=== PATIENT | male | born 1945 | race Caucasian/White ===

== ENCOUNTER → 2018-01-27 07:19 | Outpatient (CLI) | payer MEDICARE, SELFPAY ==
--- NOTE | 2018-01-27 08:00 | US_ITS ---
US aorta HISTORY: ITS.REASON: SCREENING FOR AAA FINDINGS: The upper abdominal aorta at the level is void is 1.8 x 1.5 cm. The aorta at the level the umbilicus measures 1.8 x 1.6 cm. Plaque is present within the aortic wall. Common iliacs are nondilated. IMPRESSION: No evidence of abdominal aortic aneurysm
== END ==
PROVIDERS: Family Provider Family Medicine; PCP Family Medicine; Visit Provider Internal Medicine Cardiovascular Disease
DX: Z13.6 Encounter for screening for cardiovascular disorders (principal)
CPT/HCPCS: 76770

== ENCOUNTER 2022-04-19 12:02 | Emergency (ER) | payer MEDICARE, SELFPAY ==
[2022-04-19 12:03] VITALS: BMI 22.6
--- NOTE | 2022-04-19 12:05 | ECG_ITS ---
APPROVED REPORT Exam: Resting ECG HR:49 bpm ECG Measurements Heart Rate 49 AXES NM 164 P 64 QRSd 102 QRS 65 QT 437 T -22 QTc 409 Conclusion SINUS BRADYCARDIA Late R wave progression NONSPECIFIC ST & T-WAVE ABNORMALITY ABNORMAL ECG UNCONFIRMED REPORT Electronically signed by : Fox John MD 04/20/2022 08:02:53
--- NOTE | 2022-04-19 12:14 | XR_ITS ---
PROCEDURE INFORMATION: Exam: XR Chest Exam date and time: 04/19/2022 12:28 PM Age: 76 years old Clinical indication: Other: Syncope; Additional info: Near syncope TECHNIQUE: Imaging protocol: Radiologic exam of the chest. Views: 1 view. COMPARISON: No relevant prior studies available. FINDINGS: Lungs: See Bones/joints finding. Pleural spaces: Unremarkable. No pleural effusion. No pneumothorax. Heart/Mediastinum: Unremarkable. No cardiomegaly. Bones/joints: Asymmetric increased density over the left upper lobe measuring approximately 2 cm is probably exuberant calcification at the left costochondral junction. There are no comparison studies. To exclude pulmonary mass, CT would be required. Osteophytosis and eburnation of the acromioclavicular and glenohumeral articulating surfaces. Prior median sternotomy wires. IMPRESSION: Asymmetric increased density over the left upper lobe measuring approximately 2 cm is probably exuberant calcification at the left costochondral junction. There are no comparison studies. To exclude pulmonary mass, CT would be required.
[2022-04-19 12:30] LABS: Basophils # 0.1 K/mm3 (0-0.2); Basophils % 1.3 % (0.1-2.0); Eosinophils # 0.8 K/mm3 (0.0-0.4); Eosinophils % 11.1 % (0.1-12.0); Hematocrit 44.4 % (42.0-52.0); Hemoglobin 15.5 g/dL (14.1-18.0); Lymphocytes # 2.6 K/mm3 (0.7-4.5); Lymphocytes % 37.2 % (10-50); Mean Corpuscular Hemoglobin 33.9 pg (27.0-31.2); Mean Platelet Volume 9.1 fl (7.4-10.4); Monocytes # 0.4 K/mm3 (0.1-1.0); Monocytes % 5.7 % (1.7-9.3); Neutrophils # 3.1 K/mm3 (1.8-7.8); Neutrophils % 44.6 % (37.0-80.0); Platelet Count 211 K/mm3 (142-424); Red Blood Count 4.58 M/mm3 (4.60-6.20)
--- NOTE | 2022-04-19 12:35 | HMH.EDGENADL ---
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 Recommend that you continue to drink water daily in order to not get dehydrated. They will also call you on Thursday to set you up with a Holter monitor. Please return to the ED with any new or worsening symptoms. Referrals: Fox Jewell MD [Primary Care Provider] - - Critical Care Critical Care Time: No Attestation: On 04/19/22, the high probability of a clinically significant, sudden or life threatening deterioration of the following system(s) required my full and direct attention, intervention and personal management. The time I documented below is in addition to time spent performing reported procedures but includes the following listed in this critical care notation. Medical Decision Making - Adama Inquiry Pt receiving controlled substance: No Adama was queried for this patient: No Vital Signs: 04/19/22 12:49 04/19/22 14:26 04/19/22 15:18 Temperature 98 F Temperature Source Oral Pulse Rate 53 L 60 61 Respiratory Rate 20 14 16 Blood Pressure 115/65 121/64 113/68 Blood Pressure Position Sitting 02 Sat by Pulse Oximetry 100 99 Oxygen Delivery Method Room Air 04/19/22 15:30 04/19/22 16:30 Temperature Temperature Source Pulse Rate 78 58 L Respiratory Rate Blood Pressure 123/45 L 112/74 Blood Pressure Position 02 Sat by Pulse Oximetry Oxygen Delivery Method - Lab Data Lab Results 04/19/22 12:10: WBC 7.0, RBC 4.58 L, Hgb 15.5, Hct 44.4, MCV 97.0 H, MCH 33.9 H, MCHC 35.0, RDW 13.0, Plt Count 211, MPV 9.1, Neut % (Auto) 44.6, Lymph % (Auto) 37.2, Josephine % (Auto) 5.7, Eos % (Auto) 11.1, Baso % (Auto) 1.3, Neut # (Auto) 3.1, Lymph # (Auto) 2.6, Josephine # (Auto) 0.4, Eos # (Auto) 0.8 H, Baso # (Auto) 0.1 04/19/22 12:10: Sodium 137, Potassium 4.9, Chloride 107, Carbon Dioxide 20 L, Anion Gap 14.9, BUN 29 H, Creatinine 1.90 H, Estimated Creat Clear 34, Estimated GFR 35 L, Est GFR ( Amer) 42 L, Glucose 126 H, Calcium 10.0, Total Bilirubin 0.6, AST 42, ALT 26, Alkaline Phosphatase 104, Troponin I < 0.01, Total Protein 8.1, Albumin 4.8, Globulin 3.3 H, Albumin/Globulin Ratio 1.5 04/19/22 12:10: NT-Pro-B Natriuret Pep 786 H 04/19/22 12:33: SARS-CoV-2 (PCR) Not detected, Influenza A Untype (PCR) Not detected, Influenza Type B (PCR) Not detected 04/19/22 15:48: Troponin I < 0.01 Result diagrams: 04/19/22 12:10 04/19/22 12:10 Orders (Tests/Meds): ED MEDICATIONS Discontinued Medications Generic Name Dose Route Start Last Admin Trade Name Joann PRN Reason Stop Dose Admin Sodium Chloride 500 mls @ 999 mls/hr 04/19/22 13:15 04/19/22 13:13 Sod Chlor 0.9% 1000ml Bag IV 04/19/22 13:45 999 mls/hr .Q31M DOUG Administration Iopamidol 70 ml 04/19/22 14:10 04/19/22 14:10 Iopamidol-370 (76%);100ml Bottle IV 04/19/22 14:11 70 ml ONCE ONE Administration Sodium Chloride 10 ml 04/19/22 14:10 04/19/22 14:11 Sodium Chloride 0.9% 10ml Syr (Rad Only) IV 04/19/22 14:11 10 ml ONCE ONE Administration Medical Decision Narrative: Patient is a 76-year-old male who presents with concern for syncope. Hemodynamically stable and nontoxic-appearing upon arrival. He is bradycardic on initial assessment but this is likely due to his metoprolol. His symptoms are most likely consistent with vasovagal syncope/orthostatic syncope. I have lower concern for cardiac syncope but with his extensive cardiac history is obviously high risk. His initial EKG shows sinus bradycardia with some very minimal depressions in the inferior leads and an isolated 1 mm elevation in V3. This was consistent on a repeat EKG without any dynamic changes. His laboratory studies were pertinent
[2022-04-19 12:37] LABS: Chloride 107 mmol/L (98-107); Potassium 4.9 mmoL/L (3.5-5.1); Sodium 137 mmol/L (136-145)
[2022-04-19 12:40] LABS: Albumin Level 4.8 g/dl (3.5-5.0); Albumin/Globulin Ratio 1.5 (1.1-1.8); Alkaline Phosphatase 104 U/L (38-126); Bilirubin,Total 0.6 mg/dl (0.2-1.3); Globulin 3.3 g/dL (1.3-3.2); Total Protein,Serum 8.1 g/dl (6.3-8.2)
[2022-04-19 12:41] LABS: Alanine Aminotransferase 26 U/L (12-78); Anion Gap 14.9 mEq/L (5-15); Aspartate Amino Transferase 42 U/L (17-59); Blood Urea Nitrogen 29 mg/dl (9-20); Carbon Dioxide 20 mmol/L (22.0-30.0); Creatinine Clearance Estimated 34 mL/min (50-200); Estimated Glomerular Filt Rate 35 ml/min (>60); GFR (African American) 42 ML/MIN (>60); Glucose 126 mg/dl (74-100)
[2022-04-19 12:48] LABS: Coronavirus 19, PCR Not Detected (NotDetected); Influenza A, PCR Not Detected (NotDetected); Influenza B, PCR Not Detected (NotDetected)
[2022-04-19 12:49] VITALS: BP 115/65; PULSE 53; RESP 20; O2SAT 100
[2022-04-19 12:49] LABS: NT Pro Brain Natriuretic Pep. 786 pg/mL (0-450)
[2022-04-19 12:53] LABS: Troponin I < 0.01 ng/ml (0.00-0.034)
--- NOTE | 2022-04-19 13:00 | PC.NURSE ---
called and got pt a cardiac tray
--- NOTE | 2022-04-19 13:01 | CT_ITS ---
PROCEDURE INFORMATION: Exam: CT Chest With Contrast; Diagnostic Exam date and time: 04/19/2022 1:58 PM Age: 76 years old Clinical indication: Other: Chest mass seen on xray TECHNIQUE: Imaging protocol: Diagnostic computed tomography of the chest with contrast. Radiation optimization: All CT scans at this facility use at least one of these dose optimization techniques: automated exposure control; mA and/or kV adjustment per patient size (includes targeted exams where dose is matched to clinical indication); or iterative reconstruction. Contrast material: ISOVUE; Contrast volume: 70 ml; Contrast route: IV; COMPARISON: CR XR CHEST PORTABLE 04/19/2022 12:28 PM FINDINGS: Thyroid: Multiple thyroid nodules appear present measuring up to 10 mm on the left. Dedicated thyroid ultrasound recommended for follow-up. Lungs: Mild diffuse interstitial lung disease. Pleural spaces: 7 mm pleural based nodule left lateral middle lobe. 9 mm pleural based nodule left lower lobe laterally.For patients at low risk (minimal or absent history of smoking and of other known risk factors), recommend CT Chest at 3-6 months, then consider CT Chest at 18-24 months. For patients at high risk (history of smoking or of other known risk factors), recommend CT Chest at 3-6 months, then CT Chest at 18-24 months. (Reference: [facility]) Heart: Calcification within the coronary arteries, moderate to severe. The heart is upper limits normal in size. Mediastinal space: Mucosal thickening of the lower esophagus may be due to reflux esophagitis with malignancy to be excluded. Follow-up with endoscopic or double-contrast fluoroscopic studies. Calcified granulomas are identified in the subcarinal mediastinum and bilateral hilar chains. Lymph nodes: Unremarkable. No enlarged lymph nodes. 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 Calcific plaque results in approximately 60% stenosis of the origin the left common carotid artery. Soft and calcific plaque results in approximately 60% stenosis of the origin of the left subclavian artery. Soft and calcific plaque within the aortic arch. No evidence of aortic dissection. Ascending thoracic aorta measures 4.2 cm in greatest cross section. Patent stent within the superior mesenteric artery origin. Common origin of celiac trunk and superior mesenteric artery with dense calcifications in this region. Cannot exclude stenosis of the celiac trunk origin. Patent stent appears to be present in the origin of the right renal artery. Bones/joints: Asymmetric density overlying the left medial apex seen on recent conventional radiographs is due to severe hypertrophic changes at the left junction of 1st rib and manubrium. No distinct left upper lobe mass is identified. Prior median sternotomy wires and pericardial clips. Degenerative spondylosis, mild rotoscoliosis and facet arthropathy within the spine. Osteophytosis and eburnation of the shoulders. Soft tissues: Unremarkable. IMPRESSION: 1. Asymmetric density overlying the left medial apex seen on recent conventional radiographs is due to severe hypertrophic changes at the left junction of 1st rib and manubrium. No distinct left upper lobe mass is identified. 2. Multiple thyroid nodules appear present measuring up to 10 mm on the left. Dedicated thyroid ultrasound recommended for follow-up. 3. 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 4. Calcific plaque results in approximately 60% stenosis of the origin the left common carotid artery. 5. Soft and calcifi
--- NOTE | 2022-04-19 13:04 | PC.NURSE ---
juan david called and stated that pts gfr was 34 dr advised that pt is getting fluids, they advised us to let them know when pt has finished his first bag
--- NOTE | 2022-04-19 13:11 | PC.NURSE ---
pt received 500cc NS per medics
--- NOTE | 2022-04-19 13:52 | ECG_ITS ---
APPROVED REPORT Exam: Resting ECG HR:48 bpm ECG Measurements Heart Rate 48 AXES [place] 177 P 56 QRSd 98 QRS 72 QT 459 T -27 QTc 425 Conclusion SINUS BRADYCARDIA Late R wave progression Inferior STTW changes - consider ischemia ABNORMAL ECG UNCONFIRMED REPORT Electronically signed by : Fox John MD 04/20/2022 08:02:31
--- NOTE | 2022-04-19 13:54 | PC.NURSE ---
2nd ekg per dr's order. pt updated on plan of care
--- NOTE | 2022-04-19 14:11 | HMH.ITSTN ---
called nurse Maida earlier and advised need fluids before we can do contrast due to GFR 35
[2022-04-19 14:26] VITALS: BP 121/64; PULSE 60; RESP 14; O2SAT 99
--- NOTE | 2022-04-19 14:52 | PC.NURSE ---
dsd applied to rt elbow due to an abrasion
[2022-04-19 15:18] VITALS: BP 113/68; PULSE 61; RESP 16; TEMP 36.6; O2SAT 98
[2022-04-19 15:30] VITALS: BP 123/45; PULSE 78
--- NOTE | 2022-04-19 16:09 | PC.NURSE ---
family at bedside updated on plan of care
[2022-04-19 16:30] VITALS: BP 112/74; PULSE 58
--- NOTE | 2022-04-19 16:35 | PC.NURSE ---
pt sitting on bed, wanting to leave
--- NOTE | 2022-04-19 16:36 | PC.NURSE ---
called [facility] they will page dr guevara to call dr medina
[2022-04-19 16:40] LABS: Troponin I < 0.01 ng/ml (0.00-0.034)
--- NOTE | 2022-04-19 16:47 | PC.NURSE ---
cardiology returned call
== END 2022-04-19 18:45 | disposition home or self-care (01) ==
PROVIDERS: Emergency Provider Student in an Organized Health Care Education/Training Program; PCP Family Medicine
DX: R55 Syncope and collapse (principal); N17.9 Acute kidney failure, unspecified
CPT/HCPCS: 71045; 71260; 80053; 83880; 84484; 85025; 93005; 96360; 99284; C9803; Q9967; U0003; U0005

== ENCOUNTER 2023-06-21 09:20 | Emergency (ER) | payer MEDICARE, SELFPAY ==
[2023-06-21 09:33] VITALS: BP 155/81; PULSE 67; RESP 20; TEMP 36.5; O2SAT 98; BMI 22.8
--- NOTE | 2023-06-21 09:43 | HMH.EDGENADL ---
Discharge Plan Disposition Patient Disposition: Home, Self-Care Prescriptions Prescriptions: New diclofenac sodium 3 % gel 1 applic topical BID Qty: 100 2RF Rx Instructions: Apply to affected joint twice daily prednisone 20 mg tablet 40 mg PO BID 5 Days Qty: 20 0RF Referrals Follow up/Referrals: Fox Jewell MD [Primary Care Provider] - See instructions Activity Restrictions/Add. Instructions Additional Instructions/Restrictions: Call your family doctor to establish care for this visit to the emergency department and schedule follow-up within 48 hours to ensure improvement. If you have any worsening of your condition or any other concerning signs or symptoms including fevers, chills, red streaking up your leg, or any other concerns, return to the emergency department or your primary care doctor for further evaluation. Prednisone every morning for the next 5 days. Make sure to take this with plenty of food and water to prevent GI upset and kidney dysfunction. Be sure to stay plenty hydrated. Apply cream to the ankle or affected joint twice daily when starting to have feeling of gout flare. Clinical Impressions Clinical Impression: Acute gout of left ankle Discharge ED Provider: Shayan Monge General Adult HPI General Chief complaint: PAIN Stated complaint: Lt foot pain, burning sensation, no accident Time Seen by Provider: 06/21/23 09:23 Mode of Arrival: Ambulatory Source of Information: Patient Limitations: No Limitations Description of Symptoms (Recalled from ER Triage Doc. by RN): pt to ed c/o left foot pain. pt reports a gout flare up. History of Present Illness HPI narrative: 78-year-old male with history of CAD currently on aspirin and Plavix, gout not on controller medication presenting with left ankle pain. Patient states that it started swelling and burning yesterday, 06/20. Today, 06/21, patient woke up and had redness, warmth, pain with bearing weight lateral aspect of left ankle. Has had a gout flare before. Denies fevers or chills, red streaking up his leg, nausea or vomiting, or any other concerns. Does not have any medications at home to control pain, so because it Thursday and primary care doctors closed, came to the ER for further evaluation. Related Data Previous Rx's Medication Instructions Recorded diclofenac sodium 3 % topical gel 1 applic topical BID #100 grams 06/21/23 prednisone 20 mg tablet 40 mg PO BID 5 days #20 tabs 06/21/23 Allergies Allergy/AdvReac Type Severity Reaction Status Date / Time No Known Allergies Allergy Verified 04/19/22 12:13 [facility] Disclaimer: The information contained in this section may have been updated after the patient was seen, as this information can be updated by other users. Social History Smoking Status: Never smoker alcohol intake: never current occupational status: retired Travel in the last 8 weeks: None ROS Obtained: Yes All systems reviewed & no additional complaints except as documented Physical Exam General General appearance: alert and in no apparent distress Head Head exam: atraumatic and normocephalic Eye Eye exam: Present normal appearance, PERRL and EOMI ENT ENT exam: Present mucous membranes moist Neck Neck exam: Present normal inspection, full ROM and trachea midline Respiratory Respiratory exam: Absent respiratory distress, wheezes, stridor, accessory muscle use or prolonged expiratory phase Cardiovascular Cardiovascular exam: Present normal rhythm Abdominal Exam Abdominal exam: Present soft; Absent distention, tenderness, guarding, rebound, rigidity or normal bowel sounds Extremities Exam Extremities exam: Present other (Erythema, tenderness, swelling lateral aspect of left ankle extending downward into foot. Warm to touch. Tender with range of motion, but patient able to bear weight. No evidence of cellulitis); Absent edema Neurological Exam Neurological exam: Present alert, orien
[2023-06-21 09:51] VITALS: BP 143/71; PULSE 64; RESP 20; TEMP 36.5; O2SAT 98
== END 2023-06-21 09:52 | disposition home or self-care (01) ==
PROVIDERS: Emergency Provider Emergency Medicine; PCP Family Medicine
DX: M10.072 Idiopathic gout, left ankle and foot (principal); I25.10 Atherosclerotic heart disease of native coronary artery without angina pectoris
CPT/HCPCS: 96372; 99283